=== PATIENT | male | born 1960 | race Caucasian/White ===

== ENCOUNTER 2022-09-04 22:10 | Emergency (ER) | payer OTHER, SELFPAY ==
[2022-09-04 22:16] VITALS: BP 129/92; RESP 18; TEMP 36.8; O2SAT 100; BMI 29.8
--- NOTE | 2022-09-04 22:43 | CT_ITS ---
[facility] [place] [id number] Patient Name: SEVERO WILL MRN: [id number] date: 1960 Sex: M Assigned Patient Location: ER Current Patient Location: ER Accession/Order Number: [id number] Exam Date: 09/04/2022 23:28 Report Date: 09/05/2022 00:31 At the request of: CLIF RONDON Procedure: CT abdomen pelvis wo con EXAM: CT abdomen pelvis wo con HISTORY: left flank pain COMPARISON: CT abdomen and pelvis 08/26/2020 TECHNIQUE: Images of the abdomen pelvis without contrast FINDINGS: There is mild bibasilar atelectasis. No pleural or pericardial fluid. No adrenal mass or adenopathy. No obstructive uropathy. Parapelvic cysts are present in both kidneys. Nonobstructing stone in the left kidney measuring up to 3 mm in the interpolar region. Nonobstructing stone on the right measuring up to 4 mm. Gallbladder has been removed. Aorta is normal caliber. No bowel obstruction or inflammation. No pneumatosis or pneumoperitoneum. Normal appendix. Severe sigmoid diverticulosis. No pelvic adenopathy or ascites. Prostate is not enlarged. Bladder is decompressed. No acute osseous abnormality. CT/CT abdomen pelvis wo con IMPRESSION: 1. No acute abnormality or significant interval change. 2. Bilateral nonobstructing nephrolithiasis. 3. Bilateral peripelvic renal cysts redemonstrated. 4. Chronic findings including aortic atherosclerosis and sigmoid diverticulosis. Electronically authenticated by: ANNELISE POPE Date: 09/05/2022 00:31
--- NOTE | 2022-09-04 22:45 | ED_ITS ---
HPI - Abdominal Pain General Chief Complaint: Abdominal Pain Stated Complaint: POSS KIDNEY STONES Time Seen by Provider: 09/04/22 22:39 Source: patient Mode of arrival: Wheelchair Limitations: no limitations History of Present Illness HPI narrative: left flank pain past history of kidney stones. States pain radiates down to his left testicle. No fever or urinary symptoms. Discomfort started night . Tuesday he started taking pain medication and slept most of the day. Pain increased tonight . Pain started left CVA night and by tuesday had pain left CVA and left groin. Pain worsens with sitting up. MD elicited complaint: Reports flank pain Related Data Home Medications Medication Instructions Recorded Confirmed atorvastatin 20 mg tablet 20 mg PO DAILY 09/04/22 09/04/22 Allergies Allergy/AdvReac Type Severity Reaction Status Date / Time No Known Drug Allergies Allergy Verified 09/04/22 22:15 Review of Systems ROS Status of ROS 10 or more systems reviewed and unremarkable except as noted in history and below PFS PFS Social History Smoking status: Never smoker Exam Constitutional Vital Signs, click to edit/add: Last Vital Signs Temp 98.3 F 09/04/22 22:16 Resp 18 09/04/22 22:16 BP 129/92 H 09/04/22 22:16 Pulse Ox 100 09/04/22 22:16 O2 Del Method Room Air 09/04/22 22:16 Common normals: oriented x3 Other: moderate distress HENMA Common normals: normocephalic and head/scalp atraumatic Eye Common normals: PERRL, EOMs intact bilaterally and conjunctivae normal Respiratory Common normals: normal respiratory effort, no retractions, no use of accessory muscles and clear to auscultation bilaterally Cardio Common normals: regular rate, regular rhythm, S1 normal heart sound and S2 normal heart sound GI Common normals: Normal to inspection, nondistended, normoactive bowel sounds present, soft to palpation and non-tender Other: left testes [id number] obvious swelling Back & Pelvis Other: left lumbar paravertebral tenderness. Mod tenderness that triggers pain. Extremity Common normals: normal to inspection and full ROM Neuro Common normals: oriented x3, CN's II-XII intact bilaterally, moves all extremities, no focal motor deficits and no sensory deficits noted Psych Appearance: grossly normal Course Vital Signs Vital signs: Vital Signs Temperature 98.3 F 09/04/22 22:16 Respiratory Rate 18 09/04/22 22:16 Blood Pressure 129/92 H 09/04/22 22:16 Pulse Oximetry 100 09/04/22 22:16 Oxygen Delivery Method Room Air 09/04/22 22:16 Temperature 98.3 F 09/04/22 22:16 Respiratory Rate 18 09/04/22 22:16 Blood Pressure 129/92 H 09/04/22 22:16 Pulse Oximetry 100 09/04/22 22:16 Oxygen Delivery Method Room Air 09/04/22 22:16 MDM - Abdominal Pain MDM Narrative Medical decision making narrative: patient has past history of kidney stones. Presents with left CVA, left lower back pain radiating to his left testicle. left testicle is not swollen but is mildly tender. US of the testicle suspicious for partial or early torsion due to lack of venous flow. CT abdomen neg for stone. CT L-spine pending.CT L-spine returns unremarkable. Discussed results of scrotum ultrasound with Urologist Dr Crandall. He did not feel this was an early torsion and if anything represented an epididymitis. Patient and informed of this conversation and patient resting and stated he no longer had scrotum pain. As long as he was lying still he was pain free. When he would sit up he would experience a spasmodic type pain of his left lower back. Patient was able to get up and walk to the bathroom and tolerate the pain. His inflammatory lab results are normal and his L-spine is nontender. Very low suspicion of spinal abscess given the labs and the CT L- spine reading. Clinically he has left lower back muscle spasm pain. Atypical for it radiate to his testicle and history more suggestive of renal colic but CT neg for stone. Patient and informed of the plan to treat his back as an out patient as he did not want to be hospitalized. Lab Data Labs: Lab Results 09/04/22 09/05/22 Range/Units 22:30 00:00 WBC 7.5 (4.0-11.0) 10^3/uL RBC 5.57 (4.70-6.10) 10^6/uL Hgb 16.7 (14.0-18.0) g/dL Hct 48.2 (42.0-54.0) % MCV 86.5 (80.0-94.0) fL MCH 30.0 (25.9-34.0) pg MCHC 34.6 (29.9-35.2) g/dL RDW 12.3 (11.0-15.0) % Plt Count 186 (150-450) 10^3/uL MPV 11.1 (9.5-13.5) fL Neut % (Auto) 68.7 (43.0-75.0) % Lymph % (Auto) 20.3 L (20.5-60.0) % [place] % (Auto) 8.0 (1.7-12.0) % Eos % (Auto) 1.6 (0.9-7.0) % Baso % (Auto) 0.7 (0.2-2.0) % Neut # (Auto) 5.1 (1.4-6.5) 10^3/uL Lymph # (Auto) 1.5 (1.2-3.8) 10^3/uL [place] # (Auto) 0.6 (0.3-0.8) 10^3/uL Eos # (Auto) 0.1 (0.0-0.7) 10^3/uL Baso # (Auto) 0.1 (0.0-0.1) 10^3/uL Abs Immat Gran (auto) 0.05 H (0.00-0.03) 10^3/uL Imm/Tot Granulo (auto) 0.7 H (0.0-0.5) % ESR 8 (<=20) mm/hr Sodium 137 (136-145) mmol/L Potassium 4.1 (3.5-5.1) mmol/L Chloride 101 (98-107) mmol/L Carbon Dioxide 26.3 (21.0-32.0) mmol/L Anion Gap 13.8 BUN 13.0 (7.0-18.0) mg/dL Creatinine 0.97 (0.70-1.30) mg/dL Est GFR ( Amer) >60 (>=60) Est GFR (Non-Af Amer) >60 (>=60) BUN/Creatinine Ratio 13.4 Glucose 128 H (74-106) mg/dL Calcium 8.2 L (8.5-10.1) mg/dL C-Reactive Protein <1.0 (<=1.0) mg/dL Urine Color Yellow (YELLOW) Urine Clarity Clear (CLEAR) Urine pH 5.5 (5.0-9.0) Ur Specific [place] 1.025 (1.005-1.025) Urine Protein Negative (NEG/TRACE) mg/dL Urine Glucose (UA) Negative (NEGATIVE) mg/dL Urine Ketones Negative (NEGATIVE) mg/dL Urine Occult Blood Small A (NEGATIVE) Urine Nitrite Negative (NEGATIVE) Urine Bilirubin Negative (NEGATIVE) Urine Urobilinogen 0.2 (0.2-1.0) EU/dL Ur Leukocyte Esterase Negative (NEGATIVE) Urine RBC 5-10 A (0-2) #/HPF Urine WBC 0-2 A (NONE SEEN) #/HPF Ur Squamous Epith Cells None seen (NONE/RARE) #/LPF Urine Crystals None seen (None Seen) #/HPF Urine Bacteria None seen (NONE SEEN) #/HPF Urine Casts None seen (NONE SEEN) #/LPF Urine Mucus Moderate A (NONE SEEN) Ur Culture Indicated? No Discharge Plan Discharge Chief Complaint: Abdominal Pain Clinical Impression: Strain of muscle, fascia and tendon of lower back, initial encounter, Left testicular pain Patient Disposition: Home, Self-Care Prescriptions / Home Meds: No Action atorvastatin 20 mg tablet 20 mg PO DAILY Instructions: Low Back Strain (ED) Additional Instructions: follow up with your doctor 2-3 days for recheck. Return if pain worse Stand Alone Forms: Portal Instructions Referrals: DONNA BLANCA [Primary Care Provider] - 1 week
[2022-09-04 22:49] LABS: Basophils Absolute Auto 0.1 10^3/uL (0.0-0.1); Basophils Percent Auto 0.7 % (0.2-2.0); Eosinophils Absolute Auto 0.1 10^3/uL (0.0-0.7); Eosinophils Percent Auto 1.6 % (0.9-7.0); Hematocrit 48.2 % (42.0-54.0); Hemoglobin 16.7 g/dL (14.0-18.0); Immature Granulocytes Abs Auto 0.05 10^3/uL (0.00-0.03); Immature Granulocytes Pct Auto 0.7 % (0.0-0.5); Lymphocytes Absolute Auto 1.5 10^3/uL (1.2-3.8); Lymphocytes Percent Auto 20.3 % (20.5-60.0); Mean Corpuscular HGB Conc 34.6 g/dL (29.9-35.2); Mean Corpuscular Volume 86.5 fL (80.0-94.0); Mean Platelet Volume 11.1 fL (9.5-13.5); Monocytes Absolute Auto 0.6 10^3/uL (0.3-0.8); Neutrophils Absolute Auto 5.1 10^3/uL (1.4-6.5); Neutrophils Percent Auto 68.7 % (43.0-75.0); Platelet Count 186 10^3/uL (150-450); Red Blood Count 5.57 10^6/uL (4.70-6.10); Red Cell Distribution Width 12.3 % (11.0-15.0); White Blood Count 7.5 10^3/uL (4.0-11.0)
[2022-09-04 22:51] LABS: Bilirubin Urine NEGATIVE (NEGATIVE); Blood Urine SMALL (NEGATIVE); Clarity Urine CLEAR (CLEAR); Color Urine YELLOW (YELLOW); Glucose Urine UA NEGATIVE (NEGATIVE); Ketones Urine NEGATIVE (NEGATIVE); Leukocyte Esterase Urine NEGATIVE (NEGATIVE); Nitrite Urine NEGATIVE (NEGATIVE); Protein Urine NEGATIVE (NEG/TRACE); Specific Gravity Urine 1.025 (1.005-1.025); Urobilinogen Urine 0.2 EU/dL (0.2-1.0); pH Urine 5.5 (5.0-9.0)
[2022-09-04 22:52] LABS: Urine Microscopic Indicated YES
[2022-09-04 22:57] LABS: Bacteria Urine NONE SEEN #/HPF (NONE SEEN); Cast Seen? NONE SEEN #/LPF (NONE SEEN); Crystals Seen? None Seen #/HPF (None Seen); Mucus Urine MODERATE (NONE SEEN); Squamous Epithelial Cell Urine NONE SEEN #/LPF (NONE/RARE); Urine Culture Indicated NO; WBC Urine 0-2 #/HPF (NONE SEEN)
[2022-09-04 22:58] LABS: Anion Gap 13.8; BUN Creatinine Ratio 13.4; Calcium 8.2 mg/dL (8.5-10.1); Carbon Dioxide 26.3 mmol/L (21.0-32.0); Chloride 101 mmol/L (98-107); Estimated GFR (African America >60 (>=60); Estimated GFR (Non-African Ame >60 (>=60); Glucose 128 mg/dL (74-106); Potassium 4.1 mmol/L (3.5-5.1); Sodium 137 mmol/L (136-145)
[2022-09-04] MEDS: KETOROLAC TROMETHAMINE 30 MG/ML VIAL IVP (23:02)
[2022-09-04] MEDS: 0.9 % SODIUM CHLORIDE 1,000 ML 999 ML IV (23:03)
[2022-09-04] MEDS: HYDROMORPHONE HCL 0.5 MG/0.5 ML SYRINGE (23:30)
--- NOTE | 2022-09-05 00:35 | US_ITS ---
The [address] [address] Patient Name: SEVERO WILL MRN: [id number] date: 1960 Sex: M Assigned Patient Location: ER Current Patient Location: ER Accession/Order Number: [id number] Exam Date: 09/05/2022 01:10 Report Date: 09/05/2022 02:40 At the request of: CLIF ELDRIDGE Procedure: US scrotum EXAM: US scrotum HISTORY: torsion COMPARISON: None. TECHNIQUE: Collins-scale and color Doppler images as well as spectral analysis of the bilateral testes were obtained in the axial and longitudinal planes using real time ultrasound. FINDINGS: Right: The testicle is normal in size, shape, and echotexture. The testis measures 5.5 x 3.3 x 4.1 cm with normal Doppler flow. No masses are present. The epididymis also demonstrates normal echotexture. There is a small right hydrocele. Left: The testicle is normal in size, shape, and echotexture. The testis measures 5.4 x 2.9 x 3.6 cm. Arterial blood flow is seen. Per the senior health consultant, venous blood flow was not demonstrated in the left testicle. No masses are present. The epididymis also demonstrates normal echotexture. There is no hydrocele. The images of the left groin are unremarkable. US/US scrotum IMPRESSION: 1. Per the senior health consultant, venous blood flow was not demonstrated in the left testicle. Early or partial testicular torsion is possible. 2. Small right hydrocele. 3. The provided images of the left groin are unremarkable. This was discussed with Dr. Eldridge by Dr. Haywood at 2:38 AM EST on 09/05/2022. Electronically authenticated by: Renetta HAYWOOD Date: 09/05/2022 02:40
[2022-09-05] MEDS: ORPHENADRINE 60 MG/ 2 ML VIAL IV (00:59)
[2022-09-05 01:05] LABS: Erythrocyte Sedimentation Rate 8 mm/hr (<=20)
[2022-09-05 01:10] LABS: C Reactive Protein <1.0 mg/dL (<=1.0)
--- NOTE | 2022-09-05 01:48 | CT_ITS ---
The [address] [address] Patient Name: SEVERO WILL MRN: [id number] date: 1960 Sex: M Assigned Patient Location: ER Current Patient Location: Accession/Order Number: [id number] Exam Date: 09/05/2022 02:15 Report Date: 09/05/2022 03:37 At the request of: CLIF RONDON Procedure: CT lumbar spine w con CT lumbar spine w con INDICATION: 62 years old; Male. Left flank pain. TECHNIQUE: CT of the lumbar spine.The examination was performed utilizing intravenous contrast. Sagittal and coronal images as well as axial reconstructions through the disc spaces were produced. 3-D reformats were created and reviewed for better evaluation of the lumbar spine alignment. Ionizing radiation dose reduced via iterative reconstruction/FBP blend and body size kV/mA adjustment. COMPARISON: Images from a CT abdomen and pelvis dated 08/26/2020. FINDINGS: POSTOPERATIVE CHANGES: None ALIGNMENT AND LORDOSIS: There is scoliosis concave to the right centered at the L2-L3 level. VERTEBRAE: No fracture or vertebral body collapse is seen. No bone destruction is seen. No lytic or blastic lesions. DISC LEVELS: L1-L2: Disc space narrowing with anterior osteophyte formation. No focal disc herniation or bulging. Central canal, neural foramina, and lateral recesses are patent. L2-L3: Disc space narrowing with anterior osteophyte formation and endplate sclerosis. No focal disc herniation. Central canal, neural foramina, and lateral recesses are patent. L3-L4: Disc space narrowing disc bulging and endplate osteophyte formation. No focal disc herniation. Tiny chronic Schmorl's node inferior endplate of L3. Central canal, neural foramina, lateral recesses are patent. L4-L5: Disc bulging and endplate osteophyte formation with facet degeneration ligamentous thickening. Vacuum facet degeneration is noted. There is mild central canal stenosis with circumferential compression of the thecal sac. Moderate bilateral foraminal stenosis is noted. L5-S1: Disc space narrowing with vacuum disc degeneration, disc bulging, endplate osteophyte formation, and facet degeneration with rotational deformity associated with scoliosis. There is mild bilateral foraminal stenosis. Central canal is patent. LOWER THORACIC DISCS: Disc space narrowing is seen at T12-L1. Anterior osteophyte formation is seen. No focal disc herniation is noted. This study does not visualize the distal conus. OTHER: No pathologic enhancement is seen. However, if there is persistent concern for the presence of an inflammatory process, MRI with contrast administration is more sensitive. Incidental note is made of pseudarthrosis between the spinous processes of L3 and L4 with a small vacuum component and endplate sclerosis. This is consistent with localized Baastrup's disease. Please also see the separate dictation of the CT of the abdomen for evaluation of the soft tissues. CT/CT lumbar spine w con IMPRESSION: 1. Multilevel degenerative changes. Please see the detailed discussion of the individual levels in the body of this report. 2. No fracture or bony displacement. Electronically authenticated by: ALEX BARFIELD Date: 09/05/2022 03:37
[2022-09-05] MEDS: DOXYCYCLINE MONOHYDRATE 100 MG CAPSULE PO (05:03)
== END 2022-09-05 05:23 | disposition home or self-care (01) ==
PROVIDERS: Emergency Provider Internal Medicine; PCP Family Medicine
DX: S39.012A Strain of muscle, fascia and tendon of lower back, initial encounter (principal); N50.812 Left testicular pain; X58.XXXA Exposure to other specified factors, initial encounter; Z87.442 Personal history of urinary calculi; Z79.899 Other long term (current) drug therapy
CPT/HCPCS: 36415; 72132; 74176; 76870; 80048; 81003; 81015; 85025; 85652; 86140; 96374; 96375; 99285; J1170; Q9967